=== PATIENT | male | born 1945 | race Hispanic/Latino ===

== ENCOUNTER → 2022-07-19 | Outpatient (CLI) | payer BC, MEDICARE | LOC: RAD 13:30 | PROVIDERS: ATTEND Nurse Practitioner Family | DX: R09.02 Hypoxemia (principal); J42 Unspecified chronic bronchitis; J45.909 Unspecified asthma, uncomplicated; M05.10 Rheumatoid lung disease with rheumatoid arthritis of unspecified site; M06.9 Rheumatoid arthritis, unspecified; K21.9 Gastro-esophageal reflux disease without esophagitis; G47.00 Insomnia, unspecified; R05.2 Subacute cough | CPT/HCPCS: 71046 ==